=== PATIENT | male | born 1985 | race Two or more races ===

== ENCOUNTER 2017-07-24 01:21 | Emergency (ER) | payer SELFPAY ==
[~2017-07-24] VITALS: Ht 182.9 cm; Wt 72.6 kg
[2017-07-24 01:23] VITALS: BP 125/87
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
--- NOTE | 2017-07-24 01:37 | NUR ---
XR AT BEDSIDE.
== END 2017-07-24 03:38 | disposition home or self-care (01) ==
LOC: ER 01:23
DX: S93.401A Sprain of unspecified ligament of right ankle, initial encounter (principal); Z59.0 Homelessness; X50.9XXA Other and unspecified overexertion or strenuous movements or postures, initial encounter; Y93.89 Activity, other specified; Y92.89 Other specified places as the place of occurrence of the external cause; Y99.8 Other external cause status
CPT/HCPCS: 73600; 99284; A4606; Z7610